=== PATIENT | female | born 1985 | race Caucasian/White ===

== ENCOUNTER 2024-01-17 16:12 | Emergency (ER) | payer SELFPAY ==
[~2024-01-17] VITALS: Ht 165.1 cm; Wt 77.0 kg
[2024-01-17 16:15] VITALS: BP 142/90; PULSE 110; RESP 18; TEMP 98.8; O2SAT 98
== END 2024-01-17 17:46 | disposition left against medical advice (07) ==
LOC: ER 16:31
DX: F41.1 Generalized anxiety disorder (principal); F20.9 Schizophrenia, unspecified
CPT/HCPCS: 99283